=== PATIENT | male | born 1980 | race Two or more races ===

== ENCOUNTER 2018-12-16 02:36 | Emergency (ER) | payer OTHER ==
[~2018-12-16] VITALS: Ht 177.8 cm; Wt 96.2 kg
[2018-12-16] MEDS ORDERED: NEXIUM10 MG (02:51)
[2018-12-16] MEDS ORDERED: COZAAR50 MG PO (06:31)
== END 2018-12-16 07:02 | disposition home or self-care (01) ==
LOC: ER 02:36
DX: I16.0 Hypertensive urgency (principal); I10 Essential (primary) hypertension